=== PATIENT | male | born 1950 | race Asian ===

== ENCOUNTER 2017-12-19 06:24 | Day surgery (SDC) | payer MEDICARE, OTHER ==
[~2017-12-19] VITALS: Ht 175.3 cm; Wt 100.0 kg
[2017-12-19] MEDS ORDERED: BENZOCAINE 20% 50 MCG/SPRAY 57 GM TP ONE (06:25)
[2017-12-19] MEDS ORDERED: LIDOCAINE HCL 2% 30 ML JELLY TP ONE (06:25)
[2017-12-19] MEDS ORDERED: MIDAZOLAM HCL 2 MG/2 ML VIAL ONE (06:34)
[2017-12-19] MEDS ORDERED: FentaNYL CITRATE-PF 100 MCG/2 ML VIAL ONE (06:34)
[2017-12-19] MEDS ORDERED: SODIUM CHLORIDE 0.9% 1,000 ML IV ONE ×2 (07:00→07:12)
[2017-12-19] MEDS ORDERED: MethylPREDNISolone SOD SUCC 125 MG/2 ML VIAL IVP ONE (09:15)
[2017-12-19] MEDS ORDERED: MethylPREDNISolone SOD SUCC 125 MG/2 ML VIAL ONE (09:25)
[2017-12-19] MEDS ORDERED: OXYGEN THERAPY IH SCH (20:00)
== END 2017-12-19 11:20 | disposition home or self-care (01) ==
LOC: SURGERY 06:24
PROVIDERS: ATTEND Internal Medicine Critical Care Medicine
DX: J38.4 Edema of larynx (principal); B37.0 Candidal stomatitis; J39.8 Other specified diseases of upper respiratory tract
CPT/HCPCS: 31623; 31624; 71045; 87015; 87070; 87205; 87206; 87220; 88108; 88312; J2250; J2930; J3010; J7030